=== PATIENT | male | born 1975 | race Caucasian/White ===

== ENCOUNTER 2016-07-12 16:42 | Emergency (ER) | payer MEDICAID, MEDICARE ==
--- NOTE | 2016-07-12 17:17 | Emergency Department Record ---
History of Present Illness - General Chief Complaint: Abdominal Pain Stated Complaint: ABD PAIN Time Seen by Provider: 07/12/16 17:14 Source: Patient Mode of Arrival: Ambulatory Limitations: No limitations - History of Present Illness Initial Comments: The patient is here due to a 12 hour hx of progressively increasing RLQ AP. It is a sharp stabbing pain that is nonradiating. He has nausea but no vomiting or diarrhea. The patient has had mild chronic AP off and on for years similar to this but has had I believe a perforated diverticulitis and did have a Ileostomy for some time and has had it reversed. He still does have his appendix. The patient has not had pain this severe since December of last year. MD Complaint: Abdominal pain Onset/Timin -: Hour(s) Location: RLQ Radiation: Suprapubic Migration to: RLQ Quality: Sharp Consistency: Constant Improves With: Nothing Worsens With: Nothing Associated Symptoms: Denies other symptoms - Related Data Home Medications Medication Instructions Recorded Confirmed Last Taken Gabapentin [Neurontin] 600 mg PO TID 10/06/13 07/12/16 07/12/16 Cyclobenzaprine HCl 10 mg PO TID 04/10/14 07/12/16 07/12/16 Pantoprazole Sodium 40 mg PO DAILY 04/10/14 07/12/16 07/12/16 Dicyclomine HCl [Bentyl] 40 mg PO QID 11/25/14 07/12/16 07/12/16 Lisinopril/Hydrochlorothiazide 1 tab PO DAILY 11/25/14 07/12/16 07/12/16 [Lisinopril-Hctz 20-25 mg Tab] Lorazepam [Ativan] 1 mg PO BID PRN 07/03/15 07/12/16 07/12/16 Previous Rx's Medication Instructions Recorded Ondansetron [Zofran Odt] 4 mg PO Q4H PRN #20 tab.rapdis 09/01/15 Allergies Allergy/AdvReac Type Severity Reaction Status Date / Time No Known Drug Allergies Allergy Verified 07/12/16 17:08 Travel Screening - Travel/Exposure Within Last 30 Days Have you traveled within the last 30 days?: No Review of Systems Constitutional: Denies: Chills, Fever Eyes: Denies: Eye discharge ENT: Denies: Congestion Respiratory: Denies: Cough, Dyspnea Past Medical History - SOCIAL HISTORY Smoking Status: Former smoker Alcohol Use: None Drug Use: None - RESPIRATORY Hx Respiratory Disorders: No - CARDIOVASCULAR Hx Cardio Disorders: Yes Hx Hypertension: Yes - NEURO Hx Neuro Disorders: No - GI Hx GI Disorders: Yes Hx Diverticulitis: Yes Hx Reflux: Yes Hx Obstructive Bowel: Yes - Hx Genitourinary Disorders: No - ENDOCRINE Hx Endocrine Disorders: No - MUSCULOSKELETAL Hx Musculoskeletal Disorders: Yes - PSYCH Hx Psych Problems: Yes Hx Anxiety: Yes - HEMATOLOGY/ONCOLOGY Hx Hematology/Oncology Disorders: No Family Medical History Any Significant Family History?: Yes Hx Dementia: Grandparents Hx Diabetes: Father, Grandparents Hx Heart Disease: Father, Grandparents Hx HTN: Father, Grandparents Hx Seizures: Mother Physical Exam - General General Appearance: Alert, Oriented x3, Cooperative, No acute distress - Head Head exam: Atraumatic, Normocephalic, Normal inspection - Eye Eye exam: Normal appearance, PERRL - Neck Neck exam: Normal inspection, Full ROM. negative: Tenderness - Respiratory Respiratory exam: Normal lung sounds bilaterally. negative: Respiratory distress - Cardiovascular Cardiovascular Exam: Regular rate, Normal rhythm, Normal heart sounds - GI/Abdominal GI/Abdominal exam: Soft, Tenderness (There is mild to moderate RLQ tenderness.) . negative: Guarding, Rebound, Rigid - Extremities Extremities exam: Normal inspection, Full ROM, Normal capillary refill. negative: Tenderness - Neurological Neurological exam: Normal gait. negative: Abnormal gait Course Vital Signs 07/12/16 17:00 Temperature 97.9 F Pulse Rate [ 76 Pulse Ox Probe] Respiratory 18 Rate Blood Pressure 160/101 [Left Arm] Pulse Ox 100 - Reevaluation(s) Reevaluation #1: The patient is doing a little better but would like some more pain medicine. There are no new issues. 07/12/16 18:14 Reevaluation #2: The patient is doing a little better at this time. He is now a little nauseated so I will order him some Zofran. The patient's care will be turned over to Dr. Johnston due to shift change. 07/12/16 18:54 Medical Decision Making - Lab Data Result diagrams: 07/12/16 17:35 07/12/16 17:35 Disposition Forms: Patient Portal Access
[2016-07-12] MEDS ORDERED: HYDROMORPHONE HCL 1 MG/ML CPJ IVP ONE ×3 (17:20→20:57)
[2016-07-12] MEDS ORDERED: 0.9 % SODIUM CHLORIDE 1,000 ML BAG IV ONE (17:20)
[2016-07-12] MEDS ORDERED: ONDANSETRON HCL IV 4 MG/2 ML VIAL IV ONE (17:20)
[2016-07-12 17:59] LABS: BASO % 0.6 % (0-6); EOS % 6.2 % (0-6); GRAN % 66.7 % (47-80); HEMATOCRIT 40.1 % (42.0-52.0); HEMOGLOBIN 13.2 gm/dl (14.0-18.0); LYMPH % 20.2 % (16-45); MEAN CELL VOLUME 84.6 fl (81-97); MEAN CORPUSCULAR HEMOGLOBIN 27.8 pg (27-33); MEAN CORPUSCULAR HGB CONC 32.9 g/dl (32-36); MEAN PLATELET VOLUME 11.6 fl (7.4-10.4); MONO % 6.3 % (0-9); PLATELET COUNT 318 K/uL (130-400); RED BLOOD COUNT 4.74 M/uL (4.40-5.70); RED CELL DISTRIBUTION WIDTH 14.5 % (11.5-14.5); WHITE BLOOD COUNT W/O DIFF 8.2 K/uL (4.2-12.2)
[2016-07-12 18:09] LABS: ALBUMIN 4.5 gm/dL (3.5-5.0); ALKALINE PHOSPHATASE 71 U/L (38-126); ALT/SGPT 46 U/L (21-72); ANION GAP 15.7 (7-16); AST/SGOT 25 U/L (17-59); BILIRUBIN,TOTAL 0.26 mg/dL (0.2-1.3); BLOOD UREA NITROGEN 11 mg/dL (9-20); CARBON DIOXIDE 26.3 mmol/L (22-30); EST GLOMERULAR FILTRATION RATE > 60 ml/min; GLUCOSE,RANDOM 92 mg/dL (70-110); LIPASE 188 U/L (23-300)
[2016-07-12 18:23] LABS: URINE APPEARANCE CLEAR; URINE BILIRUBIN NEGATIVE (NEGATIVE); URINE BLOOD NEGATIVE (NEGATIVE); URINE COLOR YELLOW; URINE GLUCOSE (UA) NEGATIVE (NEGATIVE); URINE KETONE NEGATIVE (NEGATIVE); URINE LEUKOCYTE ESTERASE NEGATIVE (NEGATIVE); URINE NITRITE NEGATIVE (NEGATIVE); URINE PROTEIN NEGATIVE (NEGATIVE); URINE UROBILINOGEN 0.2 E.U./dL (0.20 - 1.00)
[2016-07-12] MEDS ORDERED: ONDANSETRON HCL IV 4 MG/2 ML VIAL IVP ONE (18:51)
[2016-07-12] MEDS ORDERED: PROMETHAZINE HCL 25 MG/ML VIAL IVP ONE (20:07)
[2016-07-12] MEDS ORDERED: HYDROCODONE/APAP 7.5/325MG TABLET PO ONE (20:59)
[2016-07-12] MEDS ORDERED: DOCUSATE SODIUM 100 MG CAPSULE PO ONE (21:01)
--- NOTE | 2016-07-12 21:03 | Emergency Department Record ---
History of Present Illness - General Chief Complaint: Abdominal Pain Stated Complaint: ABD PAIN Time Seen by Provider: 07/12/16 17:14 Source: Patient Mode of Arrival: Ambulatory Limitations: No limitations - History of Present Illness MD Complaint: Abdominal pain Onset/Timin -: Hour(s) Location: RLQ Radiation: Suprapubic Migration to: RLQ Quality: Sharp Consistency: Constant Improves With: Nothing Worsens With: Nothing Associated Symptoms: Denies other symptoms - Related Data Home Medications Medication Instructions Recorded Confirmed Last Taken Gabapentin [Neurontin] 600 mg PO TID 10/06/13 07/12/16 07/12/16 Cyclobenzaprine HCl 10 mg PO TID 04/10/14 07/12/16 07/12/16 Pantoprazole Sodium 40 mg PO DAILY 04/10/14 07/12/16 07/12/16 Dicyclomine HCl [Bentyl] 40 mg PO QID 11/25/14 07/12/16 07/12/16 Lisinopril/Hydrochlorothiazide 1 tab PO DAILY 11/25/14 07/12/16 07/12/16 [Lisinopril-Hctz 20-25 mg Tab] Lorazepam [Ativan] 1 mg PO BID PRN 07/03/15 07/12/16 07/12/16 Previous Rx's Medication Instructions Recorded Ondansetron [Zofran Odt] 4 mg PO Q4H PRN #20 tab.rapdis 09/01/15 Docusate Sodium [Colace] 100 mg PO QHS #20 cap 07/12/16 Hydrocodone/Acetaminophen [Ashton 1 tab PO Q6H PRN #5 tab 07/12/16 5mg/325mg] Allergies Allergy/AdvReac Type Severity Reaction Status Date / Time No Known Drug Allergies Allergy Verified 07/12/16 17:08 Travel Screening - Travel/Exposure Within Last 30 Days Have you traveled within the last 30 days?: No Review of Systems Constitutional: Denies: Chills, Fever Eyes: Denies: Eye discharge ENT: Denies: Congestion Respiratory: Denies: Cough, Dyspnea Past Medical History - SOCIAL HISTORY Smoking Status: Former smoker Alcohol Use: None Drug Use: None - RESPIRATORY Hx Respiratory Disorders: No - CARDIOVASCULAR Hx Cardio Disorders: Yes Hx Hypertension: Yes - NEURO Hx Neuro Disorders: No - GI Hx GI Disorders: Yes Hx Diverticulitis: Yes Hx Reflux: Yes Hx Obstructive Bowel: Yes - Hx Genitourinary Disorders: No - ENDOCRINE Hx Endocrine Disorders: No - MUSCULOSKELETAL Hx Musculoskeletal Disorders: Yes - PSYCH Hx Psych Problems: Yes Hx Anxiety: Yes - HEMATOLOGY/ONCOLOGY Hx Hematology/Oncology Disorders: No Family Medical History Any Significant Family History?: Yes Hx Dementia: Grandparents Hx Diabetes: Father, Grandparents Hx Heart Disease: Father, Grandparents Hx HTN: Father, Grandparents Hx Seizures: Mother Physical Exam - General Limitations: No limitations Course Vital Signs 07/12/16 07/12/16 07/12/16 17:00 18:11 18:56 Temperature 97.9 F Pulse Rate [ 76 64 59 L Pulse Ox Probe] Respiratory 18 20 18 Rate Blood Pressure 160/101 154/95 [Left Arm] Blood Pressure 157/92 [Right Arm] Pulse Ox 100 98 99 - Reevaluation(s) Reevaluation #1: 07/12/16 20:57 cat scan d/w pt. he states he has zofran at home and would like norco for home. he was told that this might improve or get worse and become a sbo. he was told to return if he was worse Medical Decision Making - Lab Data Result diagrams: 07/12/16 17:35 07/12/16 17:35 Lab Results 07/12/16 07/12/16 07/12/16 Range/Units 17:35 17:35 18:14 WBC 8.2 (4.2-12.2) K/uL RBC 4.74 (4.40-5.70) M/uL Hgb 13.2 L (14.0-18.0) gm/dl Hct 40.1 L (42.0-52.0) % MCV 84.6 (81-97) fl MCH 27.8 (27-33) pg MCHC 32.9 (32-36) g/dl RDW 14.5 (11.5-14.5) % Plt Count 318 (130-400) K/uL MPV 11.6 H (7.4-10.4) fl Gran % 66.7 (47-80) % Lymphocytes % 20.2 (16-45) % Monocytes % 6.3 (0-9) % Eosinophils % 6.2 H (0-6) % Basophils % 0.6 (0-6) % Sodium 140 (136-145) mmol/L Potassium 3.7 (3.5-5.1) mmol/L Chloride 98 (98-107) mmol/L Carbon Dioxide 26.3 (22-30) mmol/L Anion Gap 15.7 (7-16) BUN 11 (9-20) mg/dL Creatinine 1.0 (0.66-1.25) mg/dL Estimated GFR > 60 ml/min Random Glucose 92 (70-110) mg/dL Calcium 9.0 (8.5-10.1) mg/dL Total Bilirubin 0.26 (0.2-1.3) mg/dL Direct Bilirubin 0.0 (0-0.3) mg/dL AST 25 (17-59) U/L ALT 46 (21-72) U/L Alkaline Phosphatase 71 (38-126) U/L Total Protein 7.0 (6.3-8.2) gm/dL Albumin 4.5 (3.5-5.0) gm/dL Lipase 188 (23-300) U/L Urine Color Yellow Urine Appearance Clear Urine pH 7.5 (5.0-8.0) Ur Specific Barnett 1.020 (1.002-1.030) Urine Protein Negative (NEGATIVE) Urine Glucose (UA) Negative (NEGATIVE) Urine Ketones Negative (NEGATIVE) Urine Blood Negative (NEGATIVE) Urine Nitrite Negative (NEGATIVE) Urine Bilirubin Negative (NEGATIVE) Urine Urobilinogen 0.2 (0.20 - 1.00) E.U./dL Ur Leukocyte Esterase Negative (NEGATIVE) Disposition Disposition: Discharge Clinical Impression: Ileus Disposition: Home, Self-Care Condition: (1) Good Instructions: Ileus (ED) Additional Instructions: recheck [id number], return sooner if worse. follow up with family doctor. Prescriptions: Docusate Sodium [Colace] 100 mg PO QHS #20 cap Hydrocodone/Acetaminophen [Ashton 5mg/325mg] 1 tab PO Q6H PRN #5 tab PRN Reason: Pain - General Forms: Patient Portal Access
--- NOTE | 2016-07-16 05:05 | CT SCAN REPORT ---
EXAM: CT SCAN OF THE ABDOMEN AND PELVIS WITH CONTRAST HISTORY: RIGHT LOWER QUADRANT PAIN. PREVIOUS BOWEL SURGERY. PREVIOUS COLON/ BLADDER FISTULA. HISTORY OF DIVERTICULITIS. TECHNIQUE: Routine postcontrast CT images of the abdomen and pelvis were obtained following intravenous administration of 100 mL Omnipaque-300. COMPARISON: 12/08/15. FINDINGS: Visualized lung bases are unremarkable. The liver, gallbladder, pancreas, spleen, and adrenals appear unremarkable. Kidneys enhance and excrete contrast normally. A 2.5 cm cyst, midpole right kidney. Small subcentimeter cyst, left kidney. Previous sigmoid anastomosis. There are a few scattered colonic diverticula without CT evidence of diverticulitis. Appendix has a normal CT appearance. There do appear to be a few prominent small bowel loops measuring 3 cm in caliber. No well-defined transition point. Note is made of a small bowel anastomosis. Favor ileus though developing partial small bowel obstruction not excluded. Bladder unremarkable. No abdominal or pelvic lymphadenopathy. Aorta enhances normally with contrast. Previous postsurgical changes in the anterior abdominal wall. Small bilateral fat-containing inguinal hernias. IMPRESSION: 1. THERE ARE A FEW SCATTERED PROMINENT SMALL BOWEL LOOPS MEASURING GREATER THAN 3 CM IN SIZE WITH AIR-FLUID LEVELS. NO WELL-DEFINED TRANSITION POINT. ANASTOMOTIC SUTURE MATERIAL WITHIN THE SMALL BOWEL. FAVOR ILEUS RATHER THAN SMALL BOWEL OBSTRUCTION GIVEN LACK OF TRANSITION POINT. ADDITIONALLY, THERE COULD BE UNDERLYING ENTERITIS. 2. NORMAL-APPEARING APPENDIX. 3. SMALL RIGHT RENAL CYST. JOB NUMBER: [id number] [facility]
== END 2016-07-12 21:28 | disposition home or self-care (01) ==
LOC: ER 16:42
DX: K56.7 Ileus, unspecified (principal); R10.31 Right lower quadrant pain; R11.0 Nausea; I10 Essential (primary) hypertension
CPT/HCPCS: 99284 ×2; 96376; 96374; 96375; 83690; 85025; 80076; 80048; 81003; 74177; Q9967; J2405; J1170; J2550; J7030

== ENCOUNTER 2018-02-09 20:16 | Emergency (ER) | payer MEDICARE, MEDICAID ==
--- NOTE | 2018-02-09 20:31 | Emergency Department Record ---
History of Present Illness - General Chief complaint: Lower Extremity Pain Stated complaint: TWISTED RT ANKLE/PAIN SWELLING Time Seen by Provider: 02/09/18 20:24 Source: Patient Mode of Arrival: Ambulatory Limitations: No limitations - History of Present Illness Initial comments: 42 yo male presents with right medial ankle tenderness and swelling. He dropped a tire iron on the area. Small abrasion. His tetanus status in UTD. No foot tenderness or pain. MD Complaint: Joint pain, Joint swelling -: Hour(s) Location: Right, Lower Leg -: Yes Arthralgia, Yes Myalgia Radiation: Distal Quality: Aching Consistency: Constant Improves with: Elevation, Immobilization Worsens with: Palpation, Walking Associated Symptoms: Denies other symptoms - Related Data Home Medications Medication Instructions Recorded Confirmed Last Taken Cholecalciferol (Vitamin D3) 50,000 unit PO ASDIR 02/09/18 02/09/18 Unknown [Vitamin D] Venlafaxine HCl [Effexor Xr] 37.5 mg PO DAILY 02/09/18 02/09/18 Unknown Previous Rx's Medication Instructions Recorded Ondansetron [Zofran Odt] 4 mg PO Q4H PRN #20 tab.rapdis 09/01/15 Allergies Allergy/AdvReac Type Severity Reaction Status Date / Time No Known Drug Allergies Allergy Verified 09/08/17 18:21 Review of Systems Constitutional: Denies: Chills, Fever, Malaise, Weakness Eyes: Denies: Eye discharge ENT: Denies: Congestion, Throat pain Respiratory: Denies: Cough Cardiovascular: Denies: Chest pain, Syncope Endocrine: Denies: Fatigue Gastrointestinal: Denies: Abdominal pain, Diarrhea, Nausea, Vomiting Genitourinary: Denies: Dysuria, Frequency, Hematuria Musculoskeletal: Reports: As per HPI, Arthralgia Skin: Denies: Bruising, Change in color, Rash Neurological: Denies: Numbness, Tingling, Weakness Psychiatric: Denies: Anxiety Hematological/Lymphatic: Denies: Easy bleeding, Easy bruising Past Medical History - SOCIAL HISTORY Smoking Status: Former smoker Drug Use: None - RESPIRATORY Hx Respiratory Disorders: No - CARDIOVASCULAR Hx Cardio Disorders: Yes Hx Hypertension: Yes - NEURO Hx Neuro Disorders: No - GI Hx GI Disorders: Yes Hx Crohn's Disease: Yes Hx Diverticulitis: Yes Hx Reflux: Yes Hx Obstructive Bowel: Yes - Hx Genitourinary Disorders: No - ENDOCRINE Hx Endocrine Disorders: No - MUSCULOSKELETAL Hx Musculoskeletal Disorders: Yes - PSYCH Hx Psych Problems: Yes Hx Anxiety: Yes - HEMATOLOGY/ONCOLOGY Hx Hematology/Oncology Disorders: No Family Medical History Hx Dementia: Grandparents Hx Diabetes: Father, Grandparents Hx Heart Disease: Father, Grandparents Hx HTN: Father, Grandparents Hx Seizures: Mother Physical Exam - General General Appearance: Alert, Oriented x3, Cooperative - Head Head exam: Atraumatic - Eye Eye exam: Normal appearance - ENT ENT exam: Normal exam Ear exam: Normal external inspection Nasal Exam: Normal inspection Mouth exam: Normal external inspection - Neck Neck exam: Normal inspection - Cardiovascular Peripheral Pulses: 2+: Dorsalis Pedis (R) - Extremities Extremities exam: Full ROM, Joint swelling, Normal capillary refill, Tenderness Image of Feet: 1 - mild medial tenderness and mild swelling, full ROM, 1cm superficial abrasion - Neurological Neurological exam: Alert, Oriented X3 - Psychiatric Psychiatric exam: Normal affect, Normal mood. negative: Agitated, Anxious - Skin Skin exam: Abrasion, Dry, Normal color, Warm Course Vital Signs 02/09/18 20:22 Temperature 98.4 F Pulse Rate [ 102 H Pulse Ox Probe] Respiratory 20 Rate Blood Pressure 161/102 [Left Arm] Pulse Ox 100 - Reevaluation(s) Reevaluation #1: Patient declined pain medication XRay ordered 02/09/18 20:31 02/09/18 20:58 The XR was read by me. No fracture or FB. DC with supportive care. We discussed reasons to return to the ED Disposition Disposition: Discharge Clinical Impression: Contusion of ankle, right Qualifiers: Encounter type: initial encounter Qualified Code(s): S90.01XA - Contusion of right ankle, initial encounter Disposition: Home, Self-Care Condition: (1) Good Instructions: Arthralgia (ED) Additional Instructions: Ice the ankle 3-4 times daily Return or be seen in a week if the pain continues Return sooner if worse, fever, redness or concerns Forms: Patient Portal Access Time of Disposition: 20:59 Quality - Quality Measures Quality Measures: N/A - Blood Pressure Screening Does Patient Have Any of the Following: No Blood Pressure Classification: Hypertensive Reading Systolic Measurement: 161 Diastolic Measurement: 102 Screening for High Blood Pressure: < Pre-Hypertensive BP, F/U Documented > [ [id number]] Pre-Hypertensive Follow-up Interventions: Referral to alternative/primary care provider.
--- NOTE | 2018-02-12 10:27 | RADIOLOGY REPORT ---
EXAM: RIGHT ANKLE HISTORY: DROPPED A TIRE IRON ON THE MEDIAL ASPECT OF THE ANKLE. MEDIAL RIGHT ANKLE PAIN. TECHNIQUE: Three views of the right ankle were obtained. Comparison: None. Encounter: Initial. FINDINGS: The bones appear intact. There is no visible acute fracture or dislocation. The ankle mortise is unremarkable. There are no focal soft tissue abnormalities. There are small plantar and posterior calcaneal spurs. IMPRESSION: NO ACUTE ANKLE PATHOLOGY IDENTIFIED. JOB NUMBER: [id number] [facility]
== END 2018-02-09 21:07 | disposition home or self-care (01) ==
LOC: ER 20:16
DX: S90.01XA Contusion of right ankle, initial encounter (principal); W22.8XXA Striking against or struck by other objects, initial encounter; I10 Essential (primary) hypertension; Z87.891 Personal history of nicotine dependence
CPT/HCPCS: 99283

== ENCOUNTER 2018-10-30 14:53 | Emergency (ER) | payer MEDICARE, MEDICAID ==
[2018-10-30] MEDS ORDERED: CEFTRIAXONE 1GM/50ML BAG 1 GM/50 ML BAG IVPB ONE (15:20)
[2018-10-30] MEDS ORDERED: 0.9 % SODIUM CHLORIDE 1,000 ML BAG IV ONE ×2 (15:20→15:26)
--- NOTE | 2018-10-30 15:21 | Emergency Department Record ---
Anxiety - General Chief Complaint: Anxiety Stated Complaint: REALLY BAD PANIC ATTACK Time Seen by Provider: 10/30/18 14:56 Source: Patient Mode of Arrival: Ambulatory Limitations: No limitations - History of Present Illness Initial Comments: pt is having a panic attack and vomiting Complaint: Anxiety Onset/Timin -: Hour(s) Place: Home Severity: Moderate Quality: Constant Improves With: Nothing Worsens With: Nothing Associated symptoms: Nausea/vomiting - Related Data Home Medications: Previous Rx's Medication Instructions Recorded Ondansetron [Zofran Odt] 4 mg PO Q4H PRN #20 tab.rapdis 09/01/15 Allergies/Adverse Reactions: Allergies Allergy/AdvReac Type Severity Reaction Status Date / Time No Known Drug Allergies Allergy Verified 10/30/18 15:12 Travel Screening - Travel/Exposure Within Last 30 Days Have you traveled within the last 30 days?: No - Travel/Exposure Within Last Year Have you traveled outside the [place] in the last year?: No - Additonal Travel Details Have you been exposed to anyone with a communicable illness?: No - Travel Symptoms Symptom Screening: None Review of Systems Reviewed: No additional complaints except as noted below Constitutional: Reports: As per HPI. Denies: Chills, Fever, Malaise, Night sweats, Weakness, Weight change Eyes: Reports: As per HPI. Denies: Eye discharge, Eye pain, Photophobia, Vision change ENT: Reports: As per HPI. Denies: Congestion, Dental pain, Ear pain, Epistaxis, Hearing loss, Throat pain Respiratory: Reports: As per HPI. Denies: Cough, Dyspnea, Hemoptysis, Stridor, Wheezes Cardiovascular: Reports: As per HPI. Denies: Arrhythmia, Chest pain, Dyspnea on exertion, Edema, Murmurs, Orthopnea, Palpitations, Paroxysmal nocturnal dyspnea, Rheumatic Fever, Syncope Endocrine: Reports: As per HPI. Denies: Fatigue, Heat or cold intolerance, Polydipsia, Polyuria Gastrointestinal: Reports: As per HPI, Nausea, Vomiting. Denies: Abdominal pain, Constipation, Diarrhea, Hematemesis, Hematochezia, Melena Genitourinary: Reports: As per HPI. Denies: Dysuria, Frequency, Hematuria, Incontinence, Retention, Testicular pain, Testicular mass, Urgency Musculoskeletal: Reports: As per HPI, Back pain. Denies: Arthralgia, Gout, Joint swelling, Myalgia, Neck pain Skin: Reports: As per HPI. Denies: Bruising, Change in color, Change in hair/nails, Lesions, Pruritus, Rash Neurological: Reports: As per HPI. Denies: Abnormal gait, Confusion, Headache, Numbness, Paresthesias, Seizure, Tingling, Tremors, Vertigo, Weakness Psychiatric: Reports: As per HPI, Anxiety. Denies: Auditory hallucinations, Depression, Homicidal thoughts, Suicidal thoughts, Visual hallucinations Hematological/Lymphatic: Reports: As per HPI. Denies: Anemia, Blood Clots, Easy bleeding, Easy bruising, Swollen glands Past Medical History - SOCIAL HISTORY Smoking Status: Former smoker Alcohol Use: Rare Drug Use: Heavy Drug Use Detail:: Marijuana - RESPIRATORY Hx Respiratory Disorders: No - CARDIOVASCULAR Hx Cardio Disorders: Yes Hx Hypertension: Yes - NEURO Hx Neuro Disorders: No - GI Hx GI Disorders: Yes Hx Crohn's Disease: Yes Hx Diverticulitis: Yes Hx Reflux: Yes Hx Obstructive Bowel: Yes - Hx Genitourinary Disorders: No - ENDOCRINE Hx Endocrine Disorders: No - MUSCULOSKELETAL Hx Musculoskeletal Disorders: Yes - PSYCH Hx Psych Problems: Yes Hx Anxiety: Yes Comment:: ptsd - HEMATOLOGY/ONCOLOGY Hx Hematology/Oncology Disorders: No Family Medical History Any Significant Family History?: No Hx Dementia: Grandparents Hx Diabetes: Father, Grandparents Hx Heart Disease: Father, Grandparents Hx HTN: Father, Grandparents Hx Seizures: Mother Physical Exam - General General Appearance: Alert, Oriented x3, Cooperative, Mild distress - Head Head exam: Normal inspection - Eye Eye exam: Normal appearance, PERRL, EOMI Pupils: Normal accommodation - ENT ENT exam: Normal exam, Mucous membranes moist, Normal external ear exam, Normal orophraynx Ear exam: Normal external inspection. negative: External canal tenderness Nasal Exam: Normal inspection. negative: Discharge, Sinus tenderness Mouth exam: Normal external inspection, Tongue normal Teeth exam: Normal inspection. negative: Dental caries Throat exam: Normal inspection. negative: Tonsillar erythema, Tonsillar exudate - Neck Neck exam: Normal inspection, Full ROM. negative: Tenderness - Respiratory Respiratory exam: Normal lung sounds bilaterally. negative: Respiratory distress - Cardiovascular Cardiovascular Exam: Regular rate, Normal rhythm, Normal heart sounds - GI/Abdominal GI/Abdominal exam: Soft, Normal bowel sounds. negative: Tenderness - Rectal Rectal exam: Deferred - exam: Deferred - Extremities Extremities exam: Normal inspection, Full ROM, Normal capillary refill. negative: Tenderness - Back Back exam: Reports: Normal inspection, Full ROM. Denies: Muscle spasm, Rash noted, Tenderness - Neurological Neurological exam: Alert, CN II-XII intact, Normal gait, Oriented X3 - Psychiatric Psychiatric exam: Agitated, Anxious - Skin Skin exam: Dry, Intact, Normal color, Warm Course Vital Signs 10/30/18 14:54 Temperature 99.3 F Pulse Rate 66 Respiratory 20 Rate Blood Pressure 147/79 Pulse Ox 100 Medical Decision Making - Lab Data Result diagrams: 10/30/18 15:40 10/30/18 15:40 Disposition Disposition: Discharge Clinical Impression: Anxiety Nausea & vomiting Qualifiers: Vomiting type: unspecified Vomiting Intractability: non-intractable Qualified Code(s): R11.2 - Nausea with vomiting, unspecified Disposition: Home, Self-Care Condition: (1) Good Instructions: Panic Attack (ED), Acute Nausea and Vomiting (ED) Additional Instructions: follow up with family doc. return sooner if worse. rest Forms: Patient Portal Access Quality - Quality Measures Quality Measures: N/A - Blood Pressure Screening Does Patient Have Any of the Following: Active Dx of HTN Blood Pressure Classification: Hypertensive Reading Systolic Measurement: 147 Diastolic Measurement: 79 Screening for High Blood Pressure: Patient Exclusion, Hx of HTN [[id number]]
[2018-10-30] MEDS ORDERED: LORAZEPAM 2 MG/ML VIAL IV ONE ×2 (15:38→16:07)
[2018-10-30 15:46] LABS: ABSOLUTE NEUTROPHIL COUNT 14.86; HEMATOCRIT 40.6 % (42.0-52.0); HEMOGLOBIN 13.4 gm/dl (14.0-18.0); MEAN CELL VOLUME 85.5 fl (81-97); MEAN CORPUSCULAR HEMOGLOBIN 28.2 pg (27-33); MEAN PLATELET VOLUME 11.4 fl (7.4-10.4); PLATELET COUNT 373 K/uL (130-400); RED BLOOD COUNT 4.75 M/uL (4.40-5.70); RED CELL DISTRIBUTION WIDTH 13.4 % (11.5-14.5); WHITE BLOOD COUNT W/O DIFF 16.6 K/uL (4.2-12.2)
[2018-10-30 15:52] LABS: PLATELET ESTIMATE NORMAL (NORMAL)
[2018-10-30 15:59] LABS: BLOOD UREA NITROGEN 15 mg/dL (6-20); CREATININE 1.1 mg/dL (0.7-1.2); EST GLOMERULAR FILTRATION RATE > 60 mL/min
[2018-10-30 16:01] LABS: GLUCOSE,RANDOM 130 mg/dL (74-109)
[2018-10-30 16:04] LABS: ALB/GLOB RATIO 1.9 (1.1-1.8); ALBUMIN 5.2 g/dL (4.0-5.0); ALKALINE PHOSPHATASE 71 U/L (40-129); ALT/SGPT 25 U/L (<41); AST/SGOT 18 U/L (10.0-50.0)
[2018-10-30] MEDS ORDERED: PROMETHAZINE HCL 12.5 MG in 0.9 % SODIUM CHLORIDE 100ML 100 ML IVPB ONE (16:09)
[2018-10-30 16:15] LABS: THYROID STIMULATING HORMONE 2.67 uIU/mL (0.270-4.20)
[2018-10-30 17:10] LABS: URINE APPEARANCE CLEAR; URINE BILIRUBIN NEGATIVE (NEGATIVE); URINE BLOOD NEGATIVE (NEGATIVE); URINE COLOR YELLOW; URINE GLUCOSE (UA) NEGATIVE (NEGATIVE); URINE KETONE NEGATIVE (NEGATIVE); URINE LEUKOCYTE ESTERASE NEGATIVE (NEGATIVE); URINE NITRITE NEGATIVE (NEGATIVE)
[2018-10-30] MEDS ORDERED: KETOROLAC 30 MG/ML VIAL IVP ONE (17:24)
[2018-10-30 17:44] LABS: AMPHETAMINE SCREEN URINE NOT DETECTED; BARBITURATE SCREEN URINE NOT DETECTED; BENZODIAZEPINE SCREEN URINE NOT DETECTED; COCAINE SCREEN URINE NOT DETECTED; METHADONE SCREEN URINE NOT DETECTED; METHAMPHETAMINE SCREEN NOT DETECTED; OPIATE SCREEN URINE NOT DETECTED; PHENCYCLIDINE SCREEN URINE NOT DETECTED; PROPOXYPHENE SCREEN URINE NOT DETECTED; THC SCREEN URINE DETECTED; TRICYCLIC ANTIDEPRESSANT SCRN NOT DETECTED
[2018-10-30 17:45] LABS: OXYCODONE SCREEN URINE NOT DETECTED
[2018-10-30] MEDS ORDERED: ONDANSETRON HCL IV 4 MG/2 ML VIAL IVP ONE (17:47)
[2018-10-30] MEDS ORDERED: DIPHENHYDRAMINE HCL 50 MG/ML VIAL IVP ONE (17:48)
--- NOTE | 2018-11-02 22:13 | RADIOLOGY REPORT ---
EXAM: CHEST 2 VIEWS HISTORY: ANXIETY ATTACK. TECHNIQUE: Chest x-ray two views. COMPARISON: 04/23/2015. FINDINGS: The heart is not enlarged and there is no mediastinal mass. There is no infiltrate or vascular congestion. Electrodes overlie the lower thoracic spinal canal. IMPRESSION: NO ACUTE CARDIAC OR PULMONARY ABNORMALITY. JOB NUMBER: [id number] [facility]
== END 2018-10-30 19:17 | disposition home or self-care (01) ==
LOC: ER 14:53
DX: F41.0 Panic disorder [episodic paroxysmal anxiety] (principal); R11.2 Nausea with vomiting, unspecified; I10 Essential (primary) hypertension; Z87.891 Personal history of nicotine dependence
CPT/HCPCS: 99284 ×2; 96376; 96374; 80053; 81003; 84443; 80305; 85027; 71046; J1885; J2405; J2060; J1200; J2550; J7030

== ENCOUNTER 2019-03-17 20:19 | Emergency (ER) | payer MEDICAID, MEDICARE ==
[2019-03-17] MEDS ORDERED: MORPHINE SULFATE 5 MG/ML VIAL IVP ONE (20:54)
[2019-03-17] MEDS ORDERED: LORAZEPAM 2 MG/ML VIAL IV ONE ×2 (20:54→21:47)
[2019-03-17] MEDS ORDERED: ONDANSETRON HCL IV 4 MG/2 ML VIAL IVP ONE (20:54)
--- NOTE | 2019-03-17 20:57 | Emergency Department Record ---
Anxiety - General Chief Complaint: Anxiety Stated Complaint: ANXIETY Time Seen by Provider: 03/17/19 20:47 Source: Patient Mode of Arrival: Ambulatory Limitations: No limitations - History of Present Illness Initial Comments: 43 yo male presents to ED for evaluation of abdominal pain that began approximately 6 days ago, reports history of crohn's s/p partial resection of the bowel with Dr. Mcgrath. Patient reports constipation symptoms for the past several days, denies fevers, chills, or vomiting symptoms. Patient reports that his pain symptoms have resulted in increased anxiety symptoms this evening. Patient reports long-standing history of anxiety at his baseline. MD Complaint: Anxiety, Other (Abdominal pain) Onset/Timin -: Days(s) Place: Home Previous History of Same: Yes Severity: Severe Quality: Constant, Worsening Provoking factors: Emotional stress Improves With: Nothing Worsens With: Thinking about event Associated symptoms: Other - Related Data Home Medications: Home Medications Medication Instructions Recorded Confirmed Last Taken Citalopram Hydrobromide 20 mg PO DAILY 03/17/19 03/17/19 Unknown [Citalopram HBr] Previous Rx's Medication Instructions Recorded Ondansetron [Zofran Odt] 4 mg PO Q4H PRN #20 tab.rapdis 09/01/15 Azithromycin [Zithromax] 250 mg PO DAILY #6 tablet 03/18/19 Allergies/Adverse Reactions: Allergies Allergy/AdvReac Type Severity Reaction Status Date / Time No Known Drug Allergies Allergy Verified 03/17/19 20:33 Travel Screening - Travel/Exposure Within Last 30 Days Have you traveled within the last 30 days?: No - Travel/Exposure Within Last Year Have you traveled outside the [place] in the last year?: No - Additonal Travel Details Have you been exposed to anyone with a communicable illness?: No - Travel Symptoms Symptom Screening: None Review of Systems Constitutional: Denies: Chills, Fever, Malaise, Night sweats Eyes: Denies: Eye discharge, Eye pain ENT: Denies: Congestion, Ear pain, Epistaxis Respiratory: Denies: Cough, Dyspnea Cardiovascular: Denies: Chest pain, Dyspnea on exertion Endocrine: Denies: Fatigue Gastrointestinal: Reports: Abdominal pain, Constipation, Nausea. Denies: Vomiting Genitourinary: Denies: Incontinence, Retention Musculoskeletal: Denies: Arthralgia, Back pain Skin: Denies: Bruising, Change in color Neurological: Denies: Abnormal gait, Confusion, Headache, Seizure Psychiatric: Denies: Anxiety Hematological/Lymphatic: Denies: Anemia, Blood Clots Past Medical History - SOCIAL HISTORY Smoking Status: Former smoker Alcohol Use: None Drug Use: Heavy Drug Use Detail:: Marijuana - RESPIRATORY Hx Respiratory Disorders: No - CARDIOVASCULAR Hx Cardio Disorders: Yes Hx Hypertension: Yes - NEURO Hx Neuro Disorders: No - GI Hx GI Disorders: Yes Hx Crohn's Disease: Yes Hx Diverticulitis: Yes Hx Reflux: Yes Hx Obstructive Bowel: Yes - Hx Genitourinary Disorders: No - ENDOCRINE Hx Endocrine Disorders: No - MUSCULOSKELETAL Hx Musculoskeletal Disorders: Yes - PSYCH Hx Psych Problems: Yes Hx Anxiety: Yes Comment:: ptsd - HEMATOLOGY/ONCOLOGY Hx Hematology/Oncology Disorders: No Family Medical History Any Significant Family History?: No Hx Dementia: Grandparents Hx Diabetes: Father, Grandparents Hx Heart Disease: Father, Grandparents Hx HTN: Father, Grandparents Hx Seizures: Mother Physical Exam - General General Appearance: Alert, Oriented x3, Cooperative, Moderate distress, Anxious Limitations: No limitations - Head Head exam: Atraumatic, Normocephalic, Normal inspection Head exam detail: negative: Abrasion, Contusion, Love's sign, General tenderness, Hematoma, Laceration - Eye Eye exam: Normal appearance. negative: Conjunctival injection, Periorbital swelling, Periorbital tenderness, Scleral icterus - ENT Ear exam: negative: Auricular hematoma, Auricular trauma Nasal Exam: negative: Active bleeding, Discharge, Dried blood, Foreign body Mouth exam: negative: Drooling, Laceration, Muffled voice, Tongue elevation - Neck Neck exam: Normal inspection. negative: Meningismus, Tenderness - Respiratory Respiratory exam: Normal lung sounds bilaterally. negative: Rales, Respiratory distress, Rhonchi, Stridor - Cardiovascular Cardiovascular Exam: Regular rate, Normal rhythm, Normal heart sounds - GI/Abdominal GI/Abdominal exam: Soft, Tenderness (Diffuse TTP on examination, post-surgical changes to the lower abdomen, no rebound or guareding present.). negative: Rebound, Rigid - Rectal Rectal exam: Deferred - exam: Deferred - Extremities Extremities exam: Normal inspection. negative: Pedal edema, Tenderness - Back Back exam: Denies: CVA tenderness (R), CVA tenderness (L) - Neurological Neurological exam: Alert, Normal gait, Oriented X3 - Psychiatric Psychiatric exam: Anxious - Skin Skin exam: Normal color. negative: Abrasion Type of lesion: negative: abrasion Course - Reevaluation(s) Reevaluation #1: 03/17/19 21:45 Initial laboratory studies were reviewed and appear grossly unremarkable for an acute process except for the following: Hgb 12.0 CO2 20 (likely secondary to hyperventilation) AG 21 (likely secondary to hyperventilation) Potassium 2.8 K-Lyte 50 meq ordered PO. Patient was reassessed at this time and updated on his results thus far, Patient reports that his pain symptoms are improved, reports anxiety symptoms are still present. Patient is attempting to drink oral contrast at this time. Reevaluation #2: 03/17/19 23:55 CT Abdomen and Pelvis: Patchy ground glass opacity LLL suspicious for pneumonia Study is limited by motion No acute process is identified in the abdomen and pelvis Patient and his SO were updated on all results, patient reports mild epigastric pain at this time. EKG obtained: NSR 69 Normal axis, normal intervals No acute ST-T wave changes are present. Dilaudid 0.5 mg ordered for continued discomfort, will reassess in 20-30 minutes for disposition. Reevaluation #3: 03/18/19 00:35 Patient was reassessed, reports that his pain symptoms are improved. Patient appears stable for discharge with instructions to return to the ED should his symptoms worsen. Patient and his verbalize understanding of all instructions and the patient appears stable for discharge at this time. Reevaluation #4: 03/18/19 00:50 Repeat BP is 173/113 mmHg Patient reports that he has not taken his blood pressure medication in several days, patient was counseled to resume his medication as prescribed. Medical Decision Making - Lab Data Result diagrams: 03/17/19 21:15 03/17/19 21:15 Disposition Disposition: Discharge Clinical Impression: Anxiety reaction, Hypokalemia Abdominal pain Qualifiers: Abdominal location: generalized Qualified Code(s): R10.84 - Generalized abdominal pain CAP (community acquired pneumonia) Qualifiers: Laterality: left Lung location: lower lobe of lung Qualified Code(s): J18.1 - Lobar pneumonia, unspecified organism Disposition: Home, Self-Care Condition: (2) Stable Instructions: Abdominal Pain (ED) Additional Instructions: Return to ED if your symptoms worsen or if you have any concerns. Zithromax as directed. Follow-up with your family doctor in 1-3 days without fail for further evaluation of your symptoms. Prescriptions: Azithromycin [Zithromax] 250 mg PO DAILY #6 tablet Forms: Patient Portal Access Time of Disposition: 00:37 Quality - Quality Measures Quality Measures: N/A - Blood Pressure Screening Does Patient Have Any of the Following: Active Dx of HTN Blood Pressure Classification: Hypertensive Reading Systolic Measurement: 198 Diastolic Measurement: 107 Screening for High Blood Pressure: Patient Exclusion, Hx of HTN [[id number]]
[2019-03-17] MEDS ORDERED: 0.9 % SODIUM CHLORIDE 1000ML 1,000 ML IV SCH (21:00)
[2019-03-17 21:22] LABS: ABSOLUTE NEUTROPHIL COUNT 8.98; BASO % 0.2 % (0-6); EOS % 0.1 % (0-6); HEMATOCRIT 37.5 % (42.0-52.0); LYMPH % 6.7 % (16-45); MEAN CELL VOLUME 75.3 fl (81-97); MEAN PLATELET VOLUME 11.1 fl (7.4-10.4); MONO % 3.6 % (0-9); PLATELET COUNT 451 K/uL (130-400); RED BLOOD COUNT 4.98 M/uL (4.40-5.70)
[2019-03-17 21:36] LABS: BLOOD UREA NITROGEN 17 mg/dL (6-20)
[2019-03-17 21:37] LABS: CREATININE 1.3 mg/dL (0.7-1.2); EST GLOMERULAR FILTRATION RATE > 60 mL/min; LIPASE 17 U/L (13-60); TOTAL PROTEIN 7.8 g/dL (6.6-8.7)
[2019-03-17 21:39] LABS: GLUCOSE,RANDOM 141 mg/dL (74-109)
[2019-03-17 21:42] LABS: ALB/GLOB RATIO 2.1 (1.1-1.8); ALBUMIN 5.3 g/dL (4.0-5.0); ALKALINE PHOSPHATASE 65 U/L (40-129); ALT/SGPT 33 U/L (<41); AST/SGOT 23 U/L (10.0-50.0)
[2019-03-17] MEDS ORDERED: POTASSIUM BICARB./CIT AC 25 MEQ EFF.TAB PO STA (21:50)
[2019-03-17 21:55] LABS: ANISOCYTOSIS 1+; PLATELET ESTIMATE INCREASED (NORMAL)
[2019-03-17 21:56] LABS: OVALOCYTES 1+; TOXIC GRANULATION 1+
[2019-03-17] MEDS ORDERED: PROMETHAZINE HCL 25 MG in 0.9 % SODIUM CHLORIDE 100ML 100 ML IVPB ONE (22:17)
[2019-03-17] MEDS ORDERED: DIPHENHYDRAMINE HCL 50 MG/ML VIAL IVP ONE (22:17)
[2019-03-17] MEDS ORDERED: HYDROMORPHONE HCL 2 MG/ML VIAL IVP ONE (23:39)
--- NOTE | 2019-03-19 08:56 | CT SCAN REPORT ---
EXAM: CT SCAN ABDOMEN/PELVIS W CONTRAST HISTORY: ABDOMINAL PAIN. NO BOWEL MOVEMENT FOR SIX DAYS. ANXIETY. PATIENT STATES HISTORY OF CROHN'S DISEASE. TECHNIQUE: Following intravenous contrast administration, helical CT examination of the abdomen and pelvis is performed including delayed images through the kidneys with 100 mL of Omnipaque-300 utilized. The patient did not drink diagnostic volumes of oral contrast. COMPARISON: CT abdomen and pelvis with contrast dated 09/12/2017. FINDINGS: The examination is limited by patient motion. There is borderline prominence of anterior pericardial fluid, unchanged since 09/12/2017. The heart is not enlarged. There are linear opacities clustered in the lateral left lung base. In the axial plane, these have a somewhat ground-glass appearance. Diagnostic considerations include atelectasis and less likely pneumonitis. The lung bases are otherwise clear and there is no pleural effusion. No pneumothorax. The liver, spleen, pancreas, and adrenal glands are normal in appearance. There is a contour-deforming nonenhancing fluid density mass redemonstrated within the posterolateral lower right kidney. This measures 3.6 x 3.7 cm. It is consistent with a benign cyst. The kidneys are otherwise normal in appearance. The gallbladder is unremarkable and no biliary ductal dilatation is identified. No intra-abdominal nor retroperitoneal lymphadenopathy. The vasculature is normal in caliber. No pelvic mass, lymphadenopathy, or free pelvic fluid is seen. No intrinsic urinary bladder abnormality is identified. Post sigmoidectomy changes are again demonstrated with the suture line appearing uncomplicated. There is also postsurgical change within a segment of small bowel in the right lower quadrant also appearing uncomplicated. No gross bowel dilatation. No gross bowel wall thickening. There is mild fat submucosal fat density prominence within the terminal ileum. This may relate to the sequela of chronic inflammation. The wall of the distal rectum appears borderline to mildly prominent though likely relates to incomplete distention. No ascites nor free intraperitoneal air. Postsurgical changes in the midline abdominal wall. There is mild fat density prominence redemonstrated within the left inguinal canal consistent with spermatic cord lipoma or fat within a small left inguinal hernia sac. No new lytic or blastic bone lesion. An intraspinal stimulator is again noted in place. Stimulator leads enter the spinal canal near the T11-T12 level with the tips at the upper T10 level. There is connection to a stimulator generator in the subcutaneous right gluteus soft tissues. IMPRESSION: 1. THE EXAMINATION IS LIMITED BY MOTION ARTIFACT. 2. NO CT EVIDENCE OF AN ACUTE INTRA-ABDOMINAL NOR INTRAPELVIC PROCESS. 3. POSTSURGICAL CHANGES REDEMONSTRATED WITHIN BOWEL. APPARENT BORDERLINE TO MILD WALL THICKENING OF THE DISTAL RECTUM LIKELY RELATES TO INCOMPLETE DISTENTION. 4. RIGHT RENAL CYST, STABLE. 5. MILD FAT DENSITY PROMINENCE IN THE LEFT INGUINAL CANAL CONSISTENT WITH SPERMATIC CORD LIPOMA OR FAT WITHIN SMALL INGUINAL HERNIA SAC. 6. PATCHY PREDOMINANTLY LINEAR OPACITIES IN THE LATERAL LEFT LUNG BASE CONSISTENT WITH ATELECTASIS OR MINOR PNEUMONITIS. JOB NUMBER: [id number] [facility]
== END 2019-03-18 00:51 | disposition home or self-care (01) ==
LOC: ER 20:19
DX: J18.1 Lobar pneumonia, unspecified organism (principal); E87.6 Hypokalemia; F41.9 Anxiety disorder, unspecified; R10.84 Generalized abdominal pain; K59.00 Constipation, unspecified; I10 Essential (primary) hypertension; Z87.891 Personal history of nicotine dependence
CPT/HCPCS: 99284 ×2; 96376; 96374; 96375; 83690; 80053; 85027; 74177; 93005; 93010; Q9967; J2405; J1170; J2060; J1200; J2550; J7030